=== PATIENT | male | born 1955 | race Caucasian/White ===

== ENCOUNTER → 2021-06-19 | Outpatient (CLI) | payer BC, OTHER ==
[~2021-06-19] MED LIST: CORDARONE 200M200 MG PO; ECOTRIN81 MG PO; JANUMET 50-5001 EACH PO; KEFLEX CAP 500500 MG PO; LIPITOR TAB 2020 MG PO; LOPRESSOR 25 MG25 MG PO; NORCO 5-325 TA1 EACH PO; NORVASC2.5 MG PO; PLAVIX 75 MG TA75 MG PO; SENOKOT-S TABL1 EACH PO; ZESTRIL2.5 MG PO; ZOFRAN ODT 4 MG4 MG PO
== END ==
LOC: HEART 5 07:11
DX: I48.91 Unspecified atrial fibrillation (principal); R07.9 Chest pain, unspecified; I25.10 Atherosclerotic heart disease of native coronary artery without angina pectoris; I44.7 Left bundle-branch block, unspecified
CPT/HCPCS: 78452; A9502

== ENCOUNTER → 2021-07-09 | Outpatient (CLI) | payer BC, OTHER ==
[~2021-07-09] VITALS: Ht 180.3 cm; Wt 71.7 kg
[~2021-07-09] MED LIST changes: +ISOSORBIDE MONO30 MG PO; +LISINOPRIL20 MG PO; +NITROSTAT 0.40.4 MG SL; +RANEXA500 MG PO
[2021-07-09 08:24] LABS: HEMOGLOBIN 14.9 gm/dl (14.0-17.5); RED BLOOD COUNT 5.23 M/UL (4.20-5.50); WHITE BLOOD COUNT 5.8 K/UL (4.5-11.0)
[2021-07-09 08:43] LABS: BUN/CREATININE RATIO 11 (0-10)
== END ==
LOC: CATH 07:40
PROVIDERS: Internal Medicine Cardiovascular Disease
DX: I25.118 Atherosclerotic heart disease of native coronary artery with other forms of angina pectoris (principal); I10 Essential (primary) hypertension; I44.7 Left bundle-branch block, unspecified; I48.91 Unspecified atrial fibrillation; I08.1 Rheumatic disorders of both mitral and tricuspid valves; E11.9 Type 2 diabetes mellitus without complications; E78.5 Hyperlipidemia, unspecified; Z95.5 Presence of coronary angioplasty implant and graft; Z95.828 Presence of other vascular implants and grafts; Z20.822 Contact with and (suspected) exposure to COVID-19; Z95.1 Presence of aortocoronary bypass graft
CPT/HCPCS: 36415; 71045; 80048; 82962; 85025; 85610; 93005; 99152; 99153; C1769; C1894; J1644; J2250; J3010; J7030; Q9967